=== PATIENT | male | born 1965 | race Caucasian/White ===

== ENCOUNTER → 2016-07-18 | Day surgery (SDC) | payer BC ==
[~2016-07-18] MED LIST: ACETAMINOPHEN/HYDROcodone 325 MG/7.5 MG TAB ONE; BUPIVACAINE/EPINEPHRINE 0.25% PF 30 ML VIAL ONE; KETOROLAC TROMETHAMINE 30 MG/ML (IVP) VIAL IV PUSH ONE; LACTATED RINGER'S 1000 ML INJ 1,000 ML ONE; MEPERIDINE HCL 25 MG/ML VIAL ONE; MEPERIDINE HCL 50 MG/ML VIAL ONE; MIDAZOLAM HCL 2 MG/2 ML VIAL ONE; PROPOFOL 200 MG/20 ML AMP IV ONE; ceFAZolin INJ 1,000 MG VIAL ONE
--- NOTE | 2016-07-18 18:19 | TN ---
cc: SADIE SAAVEDRA MD DATE OF SURGERY: 07/18/2016. 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 SURGEON: Sadie Saavedra MD. DESCRIPTION OF THE PROCEDURE IN DETAIL: The patient was taken to the operating room and placed in the supine position on the operating table. He was administered a general anesthesia by Dr. Ventura of the anesthesia department. Prior to the initiation of the operative procedure at that time, the left leg had a tourniquet applied to the thigh and prepped with Betadine soap followed by Betadine paint and draping commenced in the usual fashion with sterile down sheet, sterile split sheet, a stockinette over the foot and calf and this was wrapped with a Coban and an extremity drape was applied. A time-out was held and confirmed. The leg was elevated. The tourniquet was inflated to 300 mmHg. The leg was allowed to flex over the side of the operating table. An 18 gauge spinal needle was placed in the region of the lateral infrapatellar portal. This region was infiltrated with 4 cc of 0.25% Marcaine with epinephrine. Infiltration was also performed in the medial infrapatellar portal and the transpatellar tendon portal regions. A small incision was made with an 11-blade in the region of the transpatellar tendon portal. An inflow cannula was placed. A second incision was placed in the region of the lateral infrapatellar portal. An arthroscopic cannula was placed. Diagnostic arthroscopy commenced. The medial compartment was examined. It was difficult to see the medial compartment initially due to extensive synovitis which was present in the knee. The medial portal was established and the synovitis was removed. The medial meniscus was examined. The anterior and most of the middle portion in zone II of the medial meniscus was intact. However posteriorly at the junction of zone I/II at the posteromedial corner and towards the posterior horn of the medial meniscus there was fraying and tearing of the meniscus seen. Utilizing a shaver this was debrided. The scope was maneuvered over the intercondylar notch to the edge of the lateral compartment. Again, the leg was placed in a figure-four position. Again debridement of some synovium was performed. The lateral meniscus was gently debrided but there were no substantial tears seen. There were minimal arthritic changes noted on the femoral and tibial articular surfaces. The scope was placed in the intercondylar notch. Anterior and posterior cruciate ligaments appeared normal. The scope was placed in the posteromedial and posterolateral compartments; these appeared normal. The scope was placed in suprapatellar pouch. There was extensive synovial disorder noted in the pouch with lumps of tissue and some of these were healthcare marketer and some were darker and were on the order of 0.5 cm to 1 centimeter in size. Multiple synovial biopsies were obtained and the synovium was shaved down extensively this essentially a complete synovectomy of the suprapatellar pouch was performed. The medial and lateral gutters also had a synovectomy performed. Once this was completed, the knee was thoroughly irrigated and suctioned. All cannulas were removed. Each portal was closed with a single 4-0 nylon stitch. Band-Aids were applied. The posteromedial aspect of the knee where the patient had some cyst formation noted was aspirated and 20 mL of clear yellow type joint fluid was obtained. 4x4s, soft roll and Angel wrap were applied to the patient's knee. The patient tolerated the procedure well and was then taken to the recovery room in stable condition. At the completion of the procedure, the sponge count, instrument count and needle count were correct. The estimated blood loss was less than 10 cc. After application of the dressing, the tourniquet was deflated. Total tourniquet time was 50 minutes. MD MELISSA Hernández/DEB /5:30 PM /6:09 PM
== END | disposition home or self-care (01) ==
LOC: ESDC 14:00
PROVIDERS: ATTEND Orthopaedic Surgery
DX: S83.242A Other tear of medial meniscus, current injury, left knee, initial encounter (principal); M65.9 Synovitis and tenosynovitis, unspecified
CPT/HCPCS: 01400; 29881; 88305; J0690; J1885; J2175; J2250; J3010; J7120

== ENCOUNTER 2017-11-18 07:41 | Inpatient (IN) | payer BC ==
[2017-11-18] VITALS (7 sets, daily range): BP systolic 123–163; BP diastolic 70–86; PULSE 84–100; RESP 16–18; TEMP 98.1–102.3; O2SAT 92–97
[~2017-11-18] VITALS: Ht 180.3 cm; Wt 82.0 kg
[2017-11-18] MEDS ORDERED: SODIUM CHLOR 0.9% 1000 ML INJ 1,000 ML IV ONE ×2 (08:30→10:15)
[2017-11-18] MEDS ORDERED: ACETAMINOPHEN 325 MG TAB PO ONE (08:30)
--- NOTE | 2017-11-18 08:34 | PD ---
HPI Chief Complaint: Complaint Time Seen by Provider: 08:12 Travel History International Travel<30 days: No Contact w/Intl Traveler<30days: No Traveled to known affect area: No History of Present Illness HPI 52-year-old male came to the emergency room with history of lower abdominal pain for past 3 days. Patient says the pain is getting worse. It is there at all times and he points to the suprapubic area and symmetrically bilateral. He has never had this kind of pain before. No history of nausea, vomiting or diarrhea. No history of dysuria, urgency or hesitancy. No history of hematuria or hematochezia. Patient says that it hurts when he urinates or moves his bowel either way. Patient had a temperature of 100.7 in the triage. He says that he has been having a lot of sweating at home. Patient has never had a colonoscopy. He says he has been unable to sleep at night because of the pain and eating makes the pain worse. PFSH Past Medical History Narrative Medical List of his past medical, surgical, social and family history is reviewed from the nursing note. Medical History: Denies Significant Hx Hx Anticoagulant Therapy: No Diminished Hearing: No Tetanus Vaccination: Unknown Social History Alcohol Use: Yes (SOCIAL) Tobacco Use: Yes (1 PPD) Substance Use: No Allergies-Medications (Allergen,Severity, Reaction): Coded Allergies: No Known Allergies (Unverified Adverse Reaction, Unknown, 11/18/17) Comments No known drug allergies. Reported Meds & Prescriptions Reported Meds & Active Scripts Active No Active Prescriptions or Reported Medications Narrative Medication List of his home medications reviewed from the nursing note. Review of Systems Except as stated in HPI: all other systems reviewed are Neg Gastrointestinal: Positive: Abdominal Pain Physical Exam Narrative GENERAL: Awake, alert, moderate distress SKIN: Focused skin assessment warm/dry. HEAD: Atraumatic. Normocephalic. EYES: Pupils equal and round. No scleral icterus. No injection or drainage. ENT: No nasal bleeding or discharge. Mucous membranes pink and moist. NECK: Trachea midline. No JVD. CARDIOVASCULAR: Regular rate and rhythm. No murmur appreciated. RESPIRATORY: No accessory muscle use. Clear to auscultation. Breath sounds equal bilaterally. GASTROINTESTINAL: Abdomen soft, tender in the right lower quadrant and left lower quadrant of the right is worse than the left, nondistended. Hepatic and splenic margins not palpable. MUSCULOSKELETAL: No obvious deformities. No clubbing. No cyanosis. No edema. NEUROLOGICAL: Awake and alert. No obvious cranial nerve deficits. Motor grossly within normal limits. Normal speech. PSYCHIATRIC: Appropriate mood and affect; insight and judgment normal. Data Data Last Documented VS Vital Signs Date Time Temp Pulse Resp B/P (MAP) Pulse Ox O2 Delivery O2 Flow Rate FiO2 11/18/17 10:14 99.5 84 16 123/70 (87) 95 Room Air Orders Orders Urinalysis - C+S If Indicated (11/18/17 07:43) Sepsis Workup Initiated (11/18/17 ) Complete Blood Count With Diff (11/18/17 08:21) Comprehensive Metabolic Panel (11/18/17 08:21) Lactic Acid Sepsis Protocol (11/18/17 08:21) Blood Culture (11/18/17 08:21) Chest, Single Ap (11/18/17 08:21) Blood Glucose (11/18/17 08:21) Ecg Monitoring (11/18/17 08:21) Iv Access Insert/Monitor (11/18/17 08:21) Oximetry (11/18/17 08:21) Oxygen Administration (11/18/17 08:21) Acetaminophen (Tylenol) (11/18/17 08:30) Sodium Chlor 0.9% 1000 Ml Inj (Ns 1000 M (11/18/17 08:30) Ct Abd/Pel W Iv Contrast(Rout) (11/18/17 ) Iohexol 350 Inj (Omnipaque 350 Inj) (11/18/17 09:19) Piperacil-Tazo 4.5 Gm Premix (Zosyn 4.5 (11/18/17 10:15) Sodium Chlor 0.9% 1000 Ml Inj (Ns 1000 M (11/18/17 10:15) Admit Order (Ed Use Only) (11/18/17 10:38) Labs Laboratory Tests Test 11/18/17 08:25 White Blood Count 15.8 TH/MM3 Red Blood Count 4.67 MIL/MM3 Hemoglobin 16.6 GM/DL Hematocrit 48.5 % Mean Corpuscular Volume 103.8 FL Mean Corpuscular Hemoglobin 35.6 PG Mean Corpuscular Hemoglobin Concent 34.3 % Red Cell Distribution Width 13.4 % Platelet Count 213 TH/MM3 Mean Platelet Volume 8.4 FL Neutrophils (%) (Auto) 74.1 % Lymphocytes (%) (Auto) 10.6 % Monocytes (%) (Auto) 10.8 % Eosinophils (%) (Auto) 1.3 % Basophils (%) (Auto) 3.2 % Neutrophils # (Auto) 11.7 TH/MM3 Lymphocytes # (Auto) 1.7 TH/MM3 Monocytes # (Auto) 1.7 TH/MM3 Eosinophils # (Auto) 0.2 TH/MM3 Basophils # (Auto) 0.5 TH/MM3 CBC Comment AUTO DIFF Differential Comment AUTO DIFF CONFIRMED Platelet Estimate NORMAL Platelet Morphology Comment NORMAL Blood Urea Nitrogen 7 MG/DL Creatinine 1.00 MG/DL Random Glucose 135 MG/DL Total Protein 7.9 GM/DL Albumin 3.5 GM/DL Calcium Level 8.7 MG/DL Alkaline Phosphatase 76 U/L Aspartate Amino Transf (AST/SGOT) 13 U/L Alanine Aminotransferase (ALT/SGPT) 27 U/L Total Bilirubin 0.6 MG/DL Sodium Level 137 MEQ/L Potassium Level 3.8 MEQ/L Chloride Level 106 MEQ/L Carbon Dioxide Level 26.1 MEQ/L Anion Gap 5 MEQ/L Estimat Glomerular Filtration Rate 79 ML/MIN Lactic Acid Level 1.0 mmol/L MDM Medical Decision Making Medical Screen Exam Complete: Yes Emergency Medical Condition: Yes Medical Record Reviewed: Yes Differential Diagnosis Acute appendicitis, acute diverticulitis, cystitis, UTI Narrative Course 8:46 AM awaiting for blood test results and CAT scan to be done and resulted. Patient has been given pain medication, Tylenol and IV fluid bolus. 10:10 AM blood test results are back and showed leukocytosis with left shift. Chemistries within normal limit including the lactic acid. CAT scan shows moderate to severe diverticulitis with a probable small extraluminal air. I discussed this finding with Dr. Sanabria from general surgery. As per him patient can stay in [facility] and be admitted to medicine and he would consult. I have started him on IV Zosyn. I will give him another liter of IV fluid bolus. Awaiting for the hospitalist to call back. Procedures EKG Prior to Arrival: No Sepsis Criteria SIRS Criteria (2 or more): Temp > 100.9 or < 96.8, Heart rate over 90, WBC > 79295, < 4000 or > 10% bands Sepsis Criteria (SIRS+source): Infect source susp/known Physician Communication Physician Communication Dr. Sanabria Diagnosis Primary Impression: Acute diverticulitis Additional Impressions: Perforated viscus Systemic inflammatory response syndrome (SIRS) Admitting Information Admitting Physician Requests: Admit Scripts No Active Prescriptions or Reported Meds Christiano Salguero MD November 18, 2017 08:34
[2017-11-18 08:40] LABS: AUTOMATED NEUTROPHIL # 11.7 TH/MM3 (1.8-7.7); BASOPHIL # 0.5 TH/MM3 (0-0.2); BASOPHIL % 3.2 % (0.0-2.0); EOSINOPHIL # 0.2 TH/MM3 (0-0.4); EOSINOPHIL % 1.3 % (0.0-4.0); HEMATOCRIT 48.5 % (39.0-51.0); HEMOGLOBIN 16.6 GM/DL (13.0-17.0); LYMPH % 10.6 % (9.0-44.0); LYMPHOCYTE # 1.7 TH/MM3 (1.0-4.8); MEAN CELL VOLUME 103.8 FL (80.0-100.0); MEAN CORPUSCULAR HEMOGLOBIN 35.6 PG (27.0-34.0); MEAN CORPUSCULAR HGB CONC 34.3 % (32.0-36.0); MEAN PLATELET VOLUME 8.4 FL (7.0-11.0); MONO % 10.8 % (0.0-8.0); MONOCYTE # 1.7 TH/MM3 (0-0.9); NEUT % 74.1 % (16.0-70.0); PLATELET COUNT 213 TH/MM3 (150-450); RED BLOOD COUNT 4.67 MIL/MM3 (4.50-5.90); RED CELL DISTRIBUTION WIDTH 13.4 % (11.6-17.2); WHITE BLOOD COUNT 15.8 TH/MM3 (4.0-11.0)
[2017-11-18 08:52] LABS: CHLORIDE 106 MEQ/L (98-107); SODIUM (NA) 137 MEQ/L (136-145)
[2017-11-18 08:55] LABS: CALCIUM 8.7 MG/DL (8.5-10.1)
[2017-11-18 08:56] LABS: ALBUMIN 3.5 GM/DL (3.4-5.0); BICARBONATE 26.1 MEQ/L (21.0-32.0); BLOOD UREA NITROGEN 7 MG/DL (7-18); GLUCOSE,RANDOM 135 MG/DL (74-106)
[2017-11-18 08:59] LABS: ALT (GPT) 27 U/L (12-78); AST (GOT) 13 U/L (15-37); GLOMERULAR FILTRATION RATE 79 ML/MIN (>89)
[2017-11-18 09:01] LABS: TOTAL BILIRUBIN ADULT 0.6 MG/DL (0.2-1.0); TOTAL PROTEIN 7.9 GM/DL (6.4-8.2)
[2017-11-18 09:02] LABS: ALKALINE PHOSPHATASE 76 U/L (45-117)
--- NOTE | 2017-11-18 09:17 | RADRPT ---
EXAM DATE: 11/18/2017 9:01 AM EDT AGE/SEX: 52 years / Male INDICATIONS: Cough, lower abdominal pain. CLINICAL DATA: This is the patient's initial encounter. Patient reports that signs and symptoms have been present for 3 days and indicates a pain score of 7/10. MEDICAL/SURGICAL HISTORY: None. None. COMPARISON: No prior [facility] exams available for comparison. FINDINGS: A single AP view of the chest demonstrates the lungs to be symmetrically aerated without e vidence of mass, infiltrate or effusion. The cardiomediastinal contours are unremarkable. Osseous s tructures are intact. CONCLUSION: No acute intrathoracic disease. Electronically signed by: Bernardino Patricia MD 11/18/2017 9:15 AM EDT
[2017-11-18] MEDS ORDERED: IOHEXOL 350 MG/ML 10 ML VIAL (for RAD DIAG) IVCONTRAST ONE (09:19)
--- NOTE | 2017-11-18 09:58 | RADRPT ---
EXAM DATE: 11/18/2017 9:30 AM EDT AGE/SEX: 52 years / Male INDICATIONS: Lower abdominal/ inguinal pain for 3 days CLINICAL DATA: This is the patient's initial encounter. Patient reports that signs and symptoms have been present for 3 days and indicates a pain score of 6/10. MEDICAL/SURGICAL HISTORY: None. . Left knee surgery ORAL CONTRAST: No oral contrast ingested. RADIATION DOSE: 11.01 CTDI (mGy) COMPARISON: No prior [facility] exams available for comparison. TECHNIQUE: Multiple contiguous axial images were obtained through the abdomen and pelvis following b olus infusion of 91 ml Omnipaque 350 (iohexol) nonionic water-soluble contrast as a single exam dos e. No oral contrast ingested. Using automated exposure control and adjustment of the mA and/or kV ac cording to patient size, the radiation dose was kept as low as reasonably achievable to obtain optima l diagnostic quality images. FINDINGS: LOWER LUNGS: Minimal atelectasis/scarring at the lung bases. LIVER: Subcentimeter hypodense lesion in segment 5 of the liver. Liver is otherwise unremarkable. No calcified gallstones. SPLEEN: Homogeneous density without enlargement. PANCREAS: Unremarkable without mass or calcification. KIDNEYS: 4 mm nonobstructing renal calculus in the mid left kidney. Kidneys otherwise demonstrate sy mmetrical enhancement without hydronephrosis or focal mass. ADRENAL GLANDS: Unremarkable. AORTA: Nereida-aneurysmal. BOWEL/MESENTERY: Mild sigmoid diverticulosis. Moderate perisigmoid inflammatory stranding. Single fo cus of extraluminal air anteriorly. No drainable fluid collection. Several loops of minimally promine nt small bowel in this region likely reflects focal ileus due to the inflammation. Remainder of the b owel are unremarkable. ABDOMINAL WALL: Intact. RETROPERITONEUM: No evidence of adenopathy in the retrocrural, para-aortic, or deep pelvic regions. BLADDER: Contours are smooth. REPRODUCTIVE: No abnormal masses or calcifications seen. BONY STRUCTURES: Degenerative spondylosis of the lumbar spine. CONCLUSION: 1. Moderate severity sigmoid diverticulitis with single focus of probable extraluminal air anteriorl y but no drainable abscess at this time. 2. 4 mm nonobstructing renal calculus in the mid left kidney. 3. Subcentimeter hypodense lesion in segment 5 of the liver which is too small to fully characterize . Statistically, this reflects a small cyst or hemangioma. Electronically signed by: Jamshid Wood MD 11/18/2017 9:56 AM EDT
[2017-11-18] MEDS ORDERED: PIPERACIL-TAZO 4.5 GM PREMIX 100 ML IV ONE (10:15)
[2017-11-18] MEDS ORDERED: ENALAPRILAT 1.25 MG/ML VIAL IV PUSH PRN (13:15)
[2017-11-18] MEDS ORDERED: ACETAMINOPHEN/HYDROcodone 325 MG/5 MG TAB PO PRN (13:15)
[2017-11-18] MEDS ORDERED: ACETAMINOPHEN 325 MG TAB PO PRN (13:15)
[2017-11-18] MEDS ORDERED: SODIUM CHLORIDE 0.9% FLUSH 10 ML FLUSH IV FLUSH PRN (13:15)
--- NOTE | 2017-11-18 13:17 | HHI.HP ---
[facility] Félix Forbes MD Admission Diagnosis Acute diverticulitis with small perforation, SIRS Diagnoses: (1) Sepsis Diagnosis: Principal (2) Acute diverticulitis Diagnosis: Principal (3) Perforated viscus Diagnosis: Principal Chief Complaint: Abdominal pain Travel History International Travel<30 Days: No Contact w/Intl Traveler <30 Da: No Traveled to Known Affected Are: No Sepsis Criteria SIRS Criteria (2 or more): Temp > 100.9 or < 96.8, Heart rate over 90, WBC > 66103, < 4000 or > 10% bands Sepsis Criteria (SIRS+source): Infect source susp/known History of Present Illness 52-year-old male with no chronic medical illnesses who presented to the hospital because of 3 day history of abdominal pain. Patient states that his pain started on Friday where it he has some abdominal discomfort 8/10 on a pain scale located in his bilateral lower abdomen. He continued to eat and drink without any problems. The patient then on Friday states that the pain was 10/10 and he did go to work. He started having other symptoms with pain worsened whenever he coughed or laughed. The pain did not improve and then this morning the pain was so severe he could not even stand up straight and because of that he came to the emergency department for evaluation. Upon workup emergency department patient was found to have a fever, leukocytosis, CT scan showing diverticulitis with extraluminal air representing perforated viscus. ER physician did contact general surgery who will continue to follow with the patient. Upon evaluating the patient he is still having significant abdominal pain in the bilateral lower quadrant. Patient denies any nausea, vomiting, hematemesis, hematochezia, diarrhea, constipation. Review of Systems Gastrointestinal: COMPLAINS OF: Abdominal pain Except as stated in HPI: all other systems reviewed are Neg Past Family Social History Past Medical History No chronic medical illnesses Past Surgical History Left knee arthroscopic surgery Reported Medications Reported Meds & Active Scripts Active No Active Prescriptions or Reported Medications Allergies: Coded Allergies: No Known Allergies (Unverified Adverse Reaction, Unknown, 11/18/17) Family History Family history is reviewed and mother alive at 70 and in good health. Father alive at 70 just diagnosed with cancer Social History Patient smokes 1 pack of cigarettes a day since he was 17 years old. Does drink 2 alcoholic beverages daily. Denies any illicit drugs Physical Exam Vital Signs Vital Signs Date Time Temp Pulse Resp B/P (MAP) Pulse Ox O2 Delivery O2 Flow Rate FiO2 11/18/17 12:00 98.1 89 16 163/85 (111) 97 11/18/17 11:56 11/18/17 10:14 99.5 84 16 123/70 (87) 95 Room Air 11/18/17 10:13 16 95 Room Air 11/18/17 08:05 100.7 100 16 151/86 (107) 97 11/18/17 07:49 100.7 100 16 151/86 (107) 97 Physical Exam GENERAL: Well-developed, well-nourished, in no acute distress. alert and orientated HEENT: Head is normocephalic without any lesions or masses noted. Facial features are symmetric. Eyes: Pupils equal round reactive to light. Extraocular muscles are intact. Conjunctivae were clear. Oropharyngeal: Pharynx without any erythema edema. Tongue is midline without deviation. Buccal mucosa is moist without any masses or lesions NECK: Supple without any masses. Trachea midline no deviation. No JVD, no bruits are appreciated CARDIAC: Regular rhythm, regular rate. S1/S2 are heard. No murmurs gallops or rubs. LUNGS: Clear to auscultation bilaterally. No wheeze, rhonchi or rales. No use of accessory muscles on inspiration or expiration. ABDOMEN: Soft, tenderness noted bilateral lower quadrant, tympanic to percussion , pain with percussion in the lower abdomen, nondistended. Bowel sounds heard in all 4 quadrants. No organomegaly or masses. negative guarding EXTREMITIES: No edema, pulses are equal bilaterally. No cyanosis or clubbing NEUROLOGY: Mood and affect appear appropriate. Cranial nerves II through XII grossly intact. Muscle strength 5/5 in upper and lower extremities bilaterally. Deep tendon reflexes are 2+ in upper and lower extremities bilaterally. Laboratory Laboratory Tests Test 11/18/17 08:25 White Blood Count 15.8 Red Blood Count 4.67 Hemoglobin 16.6 Hematocrit 48.5 Mean Corpuscular Volume 103.8 Mean Corpuscular Hemoglobin 35.6 Mean Corpuscular Hemoglobin Concent 34.3 Red Cell Distribution Width 13.4 Platelet Count 213 Mean Platelet Volume 8.4 Neutrophils (%) (Auto) 74.1 Lymphocytes (%) (Auto) 10.6 Monocytes (%) (Auto) 10.8 Eosinophils (%) (Auto) 1.3 Basophils (%) (Auto) 3.2 Neutrophils # (Auto) 11.7 Lymphocytes # (Auto) 1.7 Monocytes # (Auto) 1.7 Eosinophils # (Auto) 0.2 Basophils # (Auto) 0.5 CBC Comment AUTO DIFF Differential Comment AUTO DIFF CONFIRMED Platelet Estimate NORMAL Platelet Morphology Comment NORMAL Blood Urea Nitrogen 7 Creatinine 1.00 Random Glucose 135 Total Protein 7.9 Albumin 3.5 Calcium Level 8.7 Alkaline Phosphatase 76 Aspartate Amino Transf (AST/SGOT) 13 Alanine Aminotransferase (ALT/SGPT) 27 Total Bilirubin 0.6 Sodium Level 137 Potassium Level 3.8 Chloride Level 106 Carbon Dioxide Level 26.1 Anion Gap 5 Estimat Glomerular Filtration Rate 79 Lactic Acid Level 1.0 Date/Time Source Procedure Growth Status 11/18/17 08:30 Blood Peripheral Aerobic Blood Culture Pending Received 11/18/17 08:30 Blood Peripheral Anaerobic Blood Culture Pending Received Result Diagram: 11/18/17 0825 11/18/17 0825 Imaging Last Impressions Chest X-Ray 11/18/17 0821 Signed Impressions: CONCLUSION: No acute intrathoracic disease. Abdomen/Pelvis CT 11/18/17 0000 Signed Impressions: CONCLUSION: Septic Shock Reassessment Septic shock perfusion: reassessment completed Caprini VTE Risk Assessment Caprini VTE Risk Assessment: Mod/High Risk (score >= 2) Caprini Risk Assessment Model Point Value = 1 Point Value = 2 Point Value = 3 Point Value = 5 Age 41-60 Minor surgery BMI > 25 kg/m2 Swollen legs Varicose veins or History of unexplained or recurrent spontaneous Oral contraceptives or hormone replacement Sepsis (< 1 month) Serious lung disease, including pneumonia (< 1 month) Abnormal pulmonary function Acute myocardial infarction Congestive heart failure (< 1 month) History of inflammatory bowel disease Medical patient at bed rest Age 61-74 Arthroscopic surgery Major open surgery (> 45 min) Laparoscopic surgery (> 45 min) Malignancy Confined to bed (> 72 hours) Immobilizing plaster cast Central venous access Age >= 75 History of VTE Family history of VTE Factor V Leiden Prothrombin [id number] Lupus anticoagulant Anticardiolipin antibodies Elevated serum homocysteine Heparin-induced thrombocytopenia Other congenital or acquired thrombophilia Stroke (< 1 month) Elective arthroplasty Hip, pelvis, or leg fracture Acute spinal cord injury (< 1 month) Prophylaxis Regimen Total Risk Factor Score Risk Level Prophylaxis Regimen 0-1 Low Early ambulation 2 Moderate Order ONE of the following: *Sequential Compression Device (SCD) *Heparin 5000 units SQ BID 3-4 Higher Order ONE of the following medications: *Heparin 5000 units SQ TID *Enoxaparin/Lovenox 40 mg SQ daily (WT < 150 kg, CrCl > 30 mL/min) *Enoxaparin/Lovenox 30 mg SQ daily (WT < 150 kg, CrCl > 10-29 mL/min) *Enoxaparin/Lovenox 30 mg SQ BID (WT < 150 kg, CrCl > 30 mL/min) AND/OR *Sequential Compression Device (SCD) 5 or more Highest Order ONE of the following medications: *Heparin 5000 units SQ TID (Preferred with Epidurals) *Enoxaparin/Lovenox 40 mg SQ daily (WT < 150 kg, CrCl > 30 mL/min) *Enoxaparin/Lovenox 30 mg SQ daily (WT < 150 kg, CrCl > 10-29 mL/min) *Enoxaparin/Lovenox 30 mg SQ BID (WT < 150 kg, CrCl > 30 mL/min) AND *Sequential Compression Device (SCD) Assessment and Plan Assessment and Plan 52-year-old male with no chronic medical illnesses who presented to hospital with a progressive 3 day history of bilateral lower quadrant tenderness with peritoneal signs Sepsis -Patient meets criteria with leukocytosis, fever, tachycardia, infectious source of perforated diverticulitis -Patient be continued on empirical antibiotics to include Zosyn -Blood cultures are pending Diverticulitis with bowel perforation -Patient remained n.p.o. -Patient was started on IV fluids -Continue pain control -Continue Zosyn -General surgery consulted for further recommendation DVT prevention -Sequential compression devices, avoid chemical prophylaxis secondary to may need surgical intervention Physician Certification 2 Midnight Certification Type: Admission for Inpatient Services Order for Inpatient Services The services are ordered in accordance with Medicare regulations or non- Medicare payer requirements, as applicable. In the case of services not specified as inpatient-only, they are appropriately provided as inpatient services in accordance with the 2-midnight benchmark. Estimated LOS (days): 2 days is the estimated time the patient will need to remain in the hospital, assuming treatment plan goals are met and no additional complications. Post-Hospital Plan: Not yet determined Juan Manuel Cuevas November 18, 2017 13:17
[2017-11-18] MEDS ORDERED: ONDANSETRON ODT 4 MG TAB SL PRN (13:30)
[2017-11-18] MEDS: MORPHINE SULFATE 4 MG/ML INJ IV PUSH PRN ×3 (14:07→22:54)
[2017-11-18] MEDS: PIPERACIL-TAZO 3.375 GM PREMIX 50 ML IV SCH ×2 (15:44→21:00)
[2017-11-18] MEDS: SODIUM CHLOR 0.9% 1000 ML INJ 1,000 ML IV SCH (15:45)
[2017-11-18 16:38] LABS: BILIRUBIN, URINE NEG (NEG); BLOOD, URINE NEG (NEG); GLUCOSE,URINE NEG (NEG); KETONE, URINE TRACE mg/dL (NEG); NITRITE,URINE NEG (NEG); URINE COLOR YELLOW (YELLW/STRAW); URINE LEUKOCYTE ESTERASE NEG (NEG)
--- NOTE | 2017-11-18 17:19 | PD.CONS ---
cc: Wild Sanabria MD HPI Service General Surgery Consult Requested By Deepak WEI Reason for Consult Acute diverticulitis Primary Care Physician Félix Forbes MD History of Present Illness This is a 52 year old male with no significance past medical history who came to the ED today complaining of a three day history of abdominal pain that has progressed. He does endorse nausea but no vomiting. He denies any diarrhea or constipation. On admission he had an elevated WBC of 15,000. His other laboratory work is essentially unremarkable. A CT abdomen/pelvis was obtained which shows moderate sigmoid diverticulitis with a small amount of extraluminal air and no drainable fluid collection. He has been given two liters normal saline bolus and started on maintenance fluids. He has been started on Zosyn. He reports he has never had an EGD or colonoscopy. A General Surgery consultation has been requested. Review of Systems Constitutional: COMPLAINS OF: Diaphoretic episodes, Fatigue, Chills, Change in appetite Endocrine: DENIES: Polydipsia, Polyuria, Polyphagia Eyes: DENIES: Diplopia, Eye inflammation Ears, nose, mouth, throat: DENIES: Hearing loss Respiratory: DENIES: Cough Cardiovascular: DENIES: Chest pain Gastrointestinal: COMPLAINS OF: Abdominal pain, Nausea, DENIES: Constipation, Diarrhea, Vomiting Genitourinary: DENIES: Hematuria, Dysuria Musculoskeletal: DENIES: Joint pain Integumentary: DENIES: Abnormal pigmentation Hematologic/lymphatic: DENIES: Bruising Immunologic/allergic: DENIES: Eczema Neurologic: DENIES: Abnormal gait, Headache Psychiatric: DENIES: Confusion, Mood changes, Depression Past Family Social History Past Medical History None Past Surgical History LEFT knee arthroscopy Reported Medications None Allergies: Coded Allergies: No Known Allergies (Unverified Allergy, Unknown, 11/18/17) Active Ordered Medications Current Medications Medications (Trade) Dose Ordered Sig/Uzma Route Start Time Stop Time Status Last Admin Sodium Chloride 1,000 ml @ 100 mls/hr Q10H IV 11/18/17 13:02 11/18/17 15:45 (NS Flush) 2 ml UNSCH PRN IV FLUSH 11/18/17 13:15 (NS Flush) 2 ml BID IV FLUSH 11/18/17 21:00 Piperacillin Sod/ Tazobactam Sod 50 ml @ 100 mls/hr Q6H IV 11/18/17 16:00 11/18/17 15:44 (Tylenol) 650 mg Q4H PRN PO 11/18/17 13:15 11/18/17 15:43 ([place] 5-325 Mg) 1 tab Q4H PRN PO 11/18/17 13:15 (Morphine Inj) 2 mg Q4H PRN IV PUSH 11/18/17 13:15 11/18/17 14:07 (Zofran Odt) 4 mg Q6H PRN SL 11/18/17 13:30 (Vasotec Inj) 1.25 mg Q6H PRN IV PUSH 11/18/17 13:15 Family History Non contributory Social History + tobacco use--- 1 ppd x 30 years + ETOH use---socially; not daily Denies illicit drug use Lives here locally. He works for the [employer]. Physical Exam Vital Signs Vital Signs Date Time Temp Pulse Resp B/P (MAP) Pulse Ox O2 Delivery O2 Flow Rate FiO2 11/18/17 16:00 102.3 95 18 147/72 (97) 96 11/18/17 12:00 98.1 89 16 163/85 (111) 97 11/18/17 11:56 11/18/17 10:14 99.5 84 16 123/70 (87) 95 Room Air 11/18/17 10:13 16 95 Room Air 11/18/17 08:05 100.7 100 16 151/86 (107) 97 11/18/17 07:49 100.7 100 16 151/86 (107) 97 Physical Exam GENERAL: Very pleasant 52 year old male resting in bed in no acute distress. SKIN: Warm and dry. HEAD: Atraumatic. Normocephalic. EYES: Pupils equal and round. No scleral icterus. No injection or drainage. ENT: No nasal bleeding or discharge. Mucous membranes pink and moist. NECK: Trachea midline. CARDIOVASCULAR: Regular rate and rhythm. RESPIRATORY: No accessory muscle use. Clear to auscultation. Breath sounds equal bilaterally. GASTROINTESTINAL: Abdomen soft, mildly distended; moderate tenderness with palpation in LLQ and RLQ. No visible scars or hernias. MUSCULOSKELETAL: Extremities without clubbing, cyanosis, or edema. No obvious deformities. NEUROLOGICAL: Awake and alert. No obvious cranial nerve deficits. Motor grossly within normal limits. Five out of 5 muscle strength in the arms and legs. Normal speech. PSYCHIATRIC: Appropriate mood and affect; insight and judgment normal. Laboratory Laboratory Tests Test 11/18/17 08:25 11/18/17 16:15 White Blood Count 15.8 Red Blood Count 4.67 Hemoglobin 16.6 Hematocrit 48.5 Mean Corpuscular Volume 103.8 Mean Corpuscular Hemoglobin 35.6 Mean Corpuscular Hemoglobin Concent 34.3 Red Cell Distribution Width 13.4 Platelet Count 213 Mean Platelet Volume 8.4 Neutrophils (%) (Auto) 74.1 Lymphocytes (%) (Auto) 10.6 Monocytes (%) (Auto) 10.8 Eosinophils (%) (Auto) 1.3 Basophils (%) (Auto) 3.2 Neutrophils # (Auto) 11.7 Lymphocytes # (Auto) 1.7 Monocytes # (Auto) 1.7 Eosinophils # (Auto) 0.2 Basophils # (Auto) 0.5 CBC Comment AUTO DIFF Differential Comment AUTO DIFF CONFIRMED Platelet Estimate NORMAL Platelet Morphology Comment NORMAL Blood Urea Nitrogen 7 Creatinine 1.00 Random Glucose 135 Total Protein 7.9 Albumin 3.5 Calcium Level 8.7 Alkaline Phosphatase 76 Aspartate Amino Transf (AST/SGOT) 13 Alanine Aminotransferase (ALT/SGPT) 27 Total Bilirubin 0.6 Sodium Level 137 Potassium Level 3.8 Chloride Level 106 Carbon Dioxide Level 26.1 Anion Gap 5 Estimat Glomerular Filtration Rate 79 Lactic Acid Level 1.0 Urine Collection Type VOIDED Urine Color YELLOW Urine Turbidity CLEAR Urine pH 6.0 Urine Specific [place] 1.020 Urine Protein NEG Urine Glucose (UA) NEG Urine Ketones TRACE Urine Occult Blood NEG Urine Nitrite NEG Urine Bilirubin NEG Urine Urobilinogen 0.2 Urine Leukocyte Esterase NEG Microscopic Urinalysis Comment CULT NOT INDICATED Date/Time Source Procedure Growth Status 11/18/17 08:30 Blood Peripheral Aerobic Blood Culture Pending Received 11/18/17 08:30 Blood Peripheral Anaerobic Blood Culture Pending Received Result Diagram: 11/18/1782411/18/17824 Imaging Last 48 hours Impressions Chest X-Ray 11/18/17 08 Signed Impressions: CONCLUSION: No acute intrathoracic disease. Abdomen/Pelvis CT 11/18/17 0000 Signed Impressions: CONCLUSION: Assessment and Plan Assessment and Plan 52 year old male with first episode of acute diverticulitis with small amount on extraluminal air on images -NPO -IVF -Zosyn -CBC in AM -As long as patient responds well to IV antibiotics will treat this episode non operatively -Explained that once inflammation and infection cleared it is recommended that he had a colonoscopy (about 6-8 weeks) to evaluate the sigmoid colon -At that point we can discuss surgical options if patient desires -Patient appeared to understand and all questions answered -Thank you for this consult; We will continue to follow Attending Note - Patient seen and examined 1 PPD smoking history Umbilical hernia, reducible Bilateral mid and lower abdominal tenderness with guarding Complicated diverticulitis with small perforation Discussed possibility of colostomy if he does not improve; he appears to understand. NPO today; clears in AM if WBC's trending down and abdominal exam improves. The exam, history, and the medical decision-making described in the above note were completed with the assistance of the mid-level provider. I reviewed and agree with the findings presented. I attest that I had a [id number] encounter with the patient on the same day, and personally performed and documented my assessment and findings in the medical record. Discussed Condition With Nieves Bennett/First Shahram CERVANTES November 18, 2017 17:19 Wild Sanabria MD November 18, 2017 17:52
[2017-11-18] MEDS: SODIUM CHLORIDE 0.9% FLUSH 10 ML FLUSH IV FLUSH SCH (21:01)
[2017-11-19] VITALS: BP 127/76; PULSE 86; RESP 15; TEMP 99.9; O2SAT 95; O2SAT 96
[2017-11-19] MEDS: SODIUM CHLOR 0.9% 1000 ML INJ 1,000 ML IV SCH ×3 (03:29→19:02)
[2017-11-19] MEDS: PIPERACIL-TAZO 3.375 GM PREMIX 50 ML IV SCH ×4 (04:53→22:04)
[2017-11-19] MEDS: MORPHINE SULFATE 4 MG/ML INJ IV PUSH PRN ×6 (04:58→22:10)
[2017-11-19 06:42] LABS: BASOPHIL # 0.1 TH/MM3 (0-0.2); BASOPHIL % 0.8 % (0.0-2.0); EOSINOPHIL # 0.3 TH/MM3 (0-0.4); EOSINOPHIL % 1.8 % (0.0-4.0); HEMATOCRIT 46.3 % (39.0-51.0); HEMOGLOBIN 15.6 GM/DL (13.0-17.0); LYMPH % 10.9 % (9.0-44.0); LYMPHOCYTE # 1.6 TH/MM3 (1.0-4.8); MEAN CELL VOLUME 104.5 FL (80.0-100.0); MEAN CORPUSCULAR HEMOGLOBIN 35.2 PG (27.0-34.0); MEAN CORPUSCULAR HGB CONC 33.7 % (32.0-36.0); MEAN PLATELET VOLUME 8.4 FL (7.0-11.0); MONO % 9.7 % (0.0-8.0); MONOCYTE # 1.4 TH/MM3 (0-0.9); NEUT % 76.8 % (16.0-70.0); PLATELET COUNT 214 TH/MM3 (150-450); RED BLOOD COUNT 4.43 MIL/MM3 (4.50-5.90); RED CELL DISTRIBUTION WIDTH 13.1 % (11.6-17.2); WHITE BLOOD COUNT 14.4 TH/MM3 (4.0-11.0)
[2017-11-19 06:56] LABS: BICARBONATE 25.9 MEQ/L (21.0-32.0); CALCIUM 8.4 MG/DL (8.5-10.1)
[2017-11-19 07:00] LABS: CREATININE 0.95 MG/DL (0.60-1.30)
[2017-11-19 07:50] VITALS: BP 153/80; PULSE 86; RESP 20; TEMP 99; O2SAT 94
--- NOTE | 2017-11-19 08:20 | HHI.PR ---
Subjective Remarks 52-year-old male who is seen in follow-up for perforated viscus with diverticulitis. Patient still with fever, worsening abdominal exam. Patient states that the pain is worsening, typically if he lays still the pain is controllable, however unable to control the pain at all times presently. Objective Vitals Vital Signs Date Time Temp Pulse Resp B/P (MAP) Pulse Ox O2 Delivery O2 Flow Rate FiO2 11/19/17 00:00 99.9 86 15 127/76 (93) 96 11/19/17 00:00 99.9 86 15 127/76 (93) 95 11/18/17 20:00 100.5 86 17 159/72 (101) 92 11/18/17 16:00 102.3 95 18 147/72 (97) 96 11/18/17 12:00 98.1 89 16 163/85 (111) 97 11/18/17 11:56 11/18/17 10:14 99.5 84 16 123/70 (87) 95 Room Air 11/18/17 10:13 16 95 Room Air I/O 11/18/17 11/18/17 11/18/17 11/19/17 11/19/17 11/19/17 06:59 14:59 22:59 06:59 14:59 22:59 Intake Total 2100 ml 100 ml 1100 ml Output Total 650 ml Balance 2100 ml -550 ml 1100 ml Intake Oral 0 ml 0 ml IV Total 2100 ml 100 ml 1100 ml Output Urine Total 650 ml # Bowel Movements 0 Result Diagram: 11/19/17 0600 11/19/17 0600 Objective Remarks GENERAL: Well-developed, well-nourished, in no acute distress. alert and orientated HEENT: Head is normocephalic without any lesions or masses noted. Facial features are symmetric. Eyes: Extraocular muscles are intact. Conjunctivae were clear. NECK: Supple without any masses. Trachea midline no deviation. No JVD, CARDIAC: Regular rhythm, regular rate. S1/S2 are heard. No murmurs gallops or rubs. LUNGS: Clear to auscultation bilaterally. No wheeze, rhonchi or rales. No use of accessory muscles on inspiration or expiration. ABDOMEN: Soft, mildly distended, worsening abdominal tenderness, pain now more apparent in the mid abdomen as compared only bilateral lower quadrants yesterday , peritoneal signs still present.. Bowel sounds heard in all 4 quadrants. No organomegaly or masses. Positive rebound, positive guarding EXTREMITIES: No edema, pulses are equal bilaterally. No cyanosis or clubbing NEUROLOGY: Mood and affect appear appropriate. Cranial nerves II through XII grossly intact. Moving all extremities, speech is clear Urinary Catheter: No Vascular Central Line Catheter: No A/P Assessment and Plan 52-year-old male with no chronic medical illnesses who presented to hospital with a progressive 3 day history of bilateral lower quadrant tenderness with peritoneal signs Sepsis -Patient meets criteria with leukocytosis, fever, tachycardia, infectious source of perforated diverticulitis -Patient be continued on empirical antibiotics to include Zosyn -Blood cultures are pending Diverticulitis with bowel perforation -Patient with worsening abdominal pain, distention, peritoneal signs -Patient remained n.p.o. -Continue IV fluids -Continue pain control -Continue Zosyn -General surgery consulted who indicates that since patient is worsening we will obtain abdominal x-ray, transfer to the main for possible surgery DVT prevention -Sequential compression devices, avoid chemical prophylaxis secondary to may need surgical intervention Juan Manuel Cuevas November 19, 2017 08:20
[2017-11-19] MEDS: SODIUM CHLORIDE 0.9% FLUSH 10 ML FLUSH IV FLUSH SCH ×2 (08:48→22:04)
--- NOTE | 2017-11-19 10:06 | HHI.PR ---
cc: Wild Sanabria MD Subjective Subjective Notes Resting in bed Feels worse today than yesterday Objective Vitals/I&O Vital Signs Date Time Temp Pulse Resp B/P (MAP) Pulse Ox O2 Delivery O2 Flow Rate FiO2 11/19/17 08:53 18 11/19/17 07:50 99.0 86 153/80 (104) 94 11/18/17 10:14 Room Air Labs Laboratory Tests Test 11/18/17 16:15 11/19/17 06:00 Urine Collection Type VOIDED Urine Color YELLOW Urine Turbidity CLEAR Urine pH 6.0 Urine Specific [place] 1.020 Urine Protein NEG Urine Glucose (UA) NEG Urine Ketones TRACE Urine Occult Blood NEG Urine Nitrite NEG Urine Bilirubin NEG Urine Urobilinogen 0.2 Urine Leukocyte Esterase NEG Microscopic Urinalysis Comment CULT NOT INDICATED White Blood Count 14.4 Red Blood Count 4.43 Hemoglobin 15.6 Hematocrit 46.3 Mean Corpuscular Volume 104.5 Mean Corpuscular Hemoglobin 35.2 Mean Corpuscular Hemoglobin Concent 33.7 Red Cell Distribution Width 13.1 Platelet Count 214 Mean Platelet Volume 8.4 Neutrophils (%) (Auto) 76.8 Lymphocytes (%) (Auto) 10.9 Monocytes (%) (Auto) 9.7 Eosinophils (%) (Auto) 1.8 Basophils (%) (Auto) 0.8 Neutrophils # (Auto) 11.0 Lymphocytes # (Auto) 1.6 Monocytes # (Auto) 1.4 Eosinophils # (Auto) 0.3 Basophils # (Auto) 0.1 CBC Comment DIFF FINAL Differential Comment Blood Urea Nitrogen 5 Creatinine 0.95 Random Glucose 102 Calcium Level 8.4 Sodium Level 138 Potassium Level 3.4 Chloride Level 105 Carbon Dioxide Level 25.9 Anion Gap 7 Estimat Glomerular Filtration Rate 84 Date/Time Source Procedure Growth Status 11/18/17 08:30 Blood Peripheral Aerobic Blood Culture Pending Received 11/18/17 08:30 Blood Peripheral Anaerobic Blood Culture Pending Received Radiology Last 48 hours Impressions Chest X-Ray 11/18/17 0821 Signed Impressions: CONCLUSION: No acute intrathoracic disease. Abdomen/Pelvis CT 11/18/17 0000 Signed Impressions: CONCLUSION: Cardiovascular: Regular Lungs: Clear Abdomen: Other (distended; increase tenderness compared to yesterday's edema ) Extremities: No edema A/P Assessment and Plan 52 year old male with first episode of acute diverticulitis with small amount on extraluminal air on images -Remain NPO -IVF -Zosyn -KUB this AM -Will plan to transfer patient to the Main [facility] likely tomorrow for possible OR Friday -Discussed plan with patient Attending Note - Dr. Sanabria Patient states the IV pump was beeping all night and made him feel bad He states he feels MUCH better this afternoon. Reports passing a little flatus. Abdomen softer and less tender than yesterday WBC's trending down Start clears Continue to monitor The exam, history, and the medical decision-making described in the above note were completed with the assistance of the mid-level provider. I reviewed and agree with the findings presented. I attest that I had a [id number] encounter with the patient on the same day, and personally performed and documented my assessment and findings in the medical record. Nieves Garcia/First Shahram CERVANTES November 19, 2017 10:06 Wild Sanabria MD November 19, 2017 15:42
[2017-11-19 11:50] VITALS: BP_SYST 143; BP_SYST 147; BP_DIAS 78; BP_DIAS 81; PULSE 79; PULSE 83; RESP 18; TEMP 100; TEMP 97.2; O2SAT 93; O2SAT 94
--- NOTE | 2017-11-19 12:21 | RADRPT ---
EXAM DATE: 11/19/2017 12:17 PM EDT AGE/SEX: 52 years / Male INDICATIONS: Lower abdomen pain. CLINICAL DATA: This is the patient's subsequent encounter. Patient reports that signs and symptoms h ave been present for 4 - 6 days and indicates a pain score of 1/10. MEDICAL/SURGICAL HISTORY: None. None. COMPARISON: No prior exams available for comparison. FINDINGS: The abdominal bowel gas pattern is mild ileus. No abnormal masses, calcifications, or organomegaly i s seen. The osseous structures are unremarkable. CONCLUSION: Mild ileus. No acute findings. Electronically signed by: Thai Mcdonald MD 11/19/2017 12:19 PM EDT
[2017-11-19 15:50] VITALS: BP 147/81; PULSE 79; RESP 20; TEMP 97.2; O2SAT 94
[2017-11-19] MEDS: NICOTINE 21 MG/24 HR PATCH T-DERMAL SCH (16:10)
[2017-11-19 20:00] VITALS: BP 144/87; PULSE 106; RESP 18; TEMP 99; O2SAT 96
[2017-11-20] VITALS: BP 162/84; PULSE 80; RESP 18; TEMP 99.5; O2SAT 95
[2017-11-20] MEDS: PIPERACIL-TAZO 3.375 GM PREMIX 50 ML IV SCH ×3 (04:32→12:45)
[2017-11-20] MEDS: SODIUM CHLOR 0.9% 1000 ML INJ 1,000 ML IV SCH (05:02)
[2017-11-20 06:50] LABS: AUTOMATED NEUTROPHIL # 8.1 TH/MM3 (1.8-7.7); BASOPHIL % 0.2 % (0.0-2.0); EOSINOPHIL # 0.5 TH/MM3 (0-0.4); EOSINOPHIL % 4.8 % (0.0-4.0); HEMATOCRIT 43.4 % (39.0-51.0); HEMOGLOBIN 14.8 GM/DL (13.0-17.0); LYMPH % 12.4 % (9.0-44.0); LYMPHOCYTE # 1.4 TH/MM3 (1.0-4.8); MEAN CELL VOLUME 104.7 FL (80.0-100.0); MEAN CORPUSCULAR HEMOGLOBIN 35.8 PG (27.0-34.0); MEAN CORPUSCULAR HGB CONC 34.2 % (32.0-36.0); MEAN PLATELET VOLUME 8.2 FL (7.0-11.0); MONO % 11.9 % (0.0-8.0); MONOCYTE # 1.3 TH/MM3 (0-0.9); NEUT % 70.7 % (16.0-70.0); PLATELET COUNT 223 TH/MM3 (150-450); RED BLOOD COUNT 4.14 MIL/MM3 (4.50-5.90); RED CELL DISTRIBUTION WIDTH 13.2 % (11.6-17.2); WHITE BLOOD COUNT 11.3 TH/MM3 (4.0-11.0)
[2017-11-20 06:56] LABS: BICARBONATE 25.8 MEQ/L (21.0-32.0); MAGNESIUM 2.2 MG/DL (1.5-2.5)
[2017-11-20 06:59] LABS: CREATININE 0.78 MG/DL (0.60-1.30)
[2017-11-20 08:00] VITALS: BP 142/91; PULSE 82; RESP 18; TEMP 98.6; O2SAT 95
[2017-11-20] MEDS: SODIUM CHLORIDE 0.9% FLUSH 10 ML FLUSH IV FLUSH SCH (08:38)
[2017-11-20] MEDS: NICOTINE 21 MG/24 HR PATCH T-DERMAL SCH (08:39)
[2017-11-20] MEDS ORDERED: REMOVE OLD PATCH T-DERMAL SCH (09:00)
--- NOTE | 2017-11-20 09:42 | HHI.PR ---
cc: Wild Sanabria MD Subjective Subjective Notes Resting in bed Feeling much better today Tolerated clear liquids Objective Vitals/I&O Vital Signs Date Time Temp Pulse Resp B/P (MAP) Pulse Ox O2 Delivery O2 Flow Rate FiO2 11/20/17 08:00 98.6 82 18 142/91 (108) 95 11/18/17 10:14 Room Air Labs Laboratory Tests Test 11/20/17 05:55 White Blood Count 11.3 Red Blood Count 4.14 Hemoglobin 14.8 Hematocrit 43.4 Mean Corpuscular Volume 104.7 Mean Corpuscular Hemoglobin 35.8 Mean Corpuscular Hemoglobin Concent 34.2 Red Cell Distribution Width 13.2 Platelet Count 223 Mean Platelet Volume 8.2 Neutrophils (%) (Auto) 70.7 Lymphocytes (%) (Auto) 12.4 Monocytes (%) (Auto) 11.9 Eosinophils (%) (Auto) 4.8 Basophils (%) (Auto) 0.2 Neutrophils # (Auto) 8.1 Lymphocytes # (Auto) 1.4 Monocytes # (Auto) 1.3 Eosinophils # (Auto) 0.5 Basophils # (Auto) 0.0 CBC Comment DIFF FINAL Differential Comment Blood Urea Nitrogen 3 Creatinine 0.78 Random Glucose 91 Calcium Level 8.0 Magnesium Level 2.2 Sodium Level 139 Potassium Level 3.5 Chloride Level 107 Carbon Dioxide Level 25.8 Anion Gap 6 Estimat Glomerular Filtration Rate 105 Date/Time Source Procedure Growth Status 11/18/17 08:30 Blood Peripheral Aerobic Blood Culture - Preliminary NO GROWTH IN 1 DAY Resulted 11/18/17 08:30 Blood Peripheral Anaerobic Blood Culture - Preliminary NO GROWTH IN 1 DAY Resulted Radiology Last 48 hours Impressions Chest X-Ray 11/18/17 0821 Signed Impressions: CONCLUSION: No acute intrathoracic disease. Abdomen/Pelvis CT 11/18/17 0000 Signed Impressions: CONCLUSION: Cardiovascular: Regular Lungs: Clear Abdomen: Non-distended, Other (mildly tender to palpation ) Extremities: No edema A/P Assessment and Plan 52 year old male with first episode of acute diverticulitis with small amount on extraluminal air on images -Full liquids -IVF -Continue IV antibiotics -If continues to progress and WBC continues to decrease will plan to transition to PO antibiotics tomorrow and advance diet to low residue -Patient will need to follow up with GI for colonoscopy in 6-8 weeks Nieves Garcia/First Shahram CERVANTES November 20, 2017 09:42
[2017-11-20 12:03] VITALS: BP 142/99; PULSE 90; RESP 18; TEMP 98.9; O2SAT 97
== END 2017-11-20 13:45 | disposition left against medical advice (07) | DRG 872 ==
LOC: PHED 07:41 → PHEDA 10:39 → INTOOBSV 10:39 → PH3B 11:59 → OBSVTOIN 13:04
PROVIDERS: ADMIT Hospitalist; ATTEND Hospitalist
DX: A41.9 Sepsis, unspecified organism (principal); K57.20 Diverticulitis of large intestine with perforation and abscess without bleeding; K42.9 Umbilical hernia without obstruction or gangrene; F17.210 Nicotine dependence, cigarettes, uncomplicated
CPT/HCPCS: 71045; 74018; 74177; 80048; 80053; 81001; 83605; 83735; 85025; 87040; 96365; J2270; J2543; J7030; Q9967